=== PATIENT | male | born 1980 | race Hispanic/Latino ===

== ENCOUNTER 2020-03-24 19:05 | Emergency (ER) | payer OTHER ==
[~2020-03-24] VITALS: Ht 175.3 cm; Wt 86.2 kg
[2020-03-24] MEDS ORDERED: CEFEPIME 2 GM/NS 0.9% 100 ML 100 ML IV SCH (19:15)
[2020-03-24] MEDS ORDERED: SODIUM CHLORIDE 0.9% 1000ML 1,000 ML IV ONE (19:15)
[2020-03-24] MEDS ORDERED: ACETAMINOPHEN 325 MG TAB PO ONE (19:15)
--- NOTE | 2020-03-24 19:20 | Emergency Department Note ---
History of Present Illnes History of Present Illness Chief Complaint: COVID PUI History of Present Illness This is a 39 year old male presents with c/o fever and cough starting this morning, states cough is mildly productive, pt reports he smokes less than a pack of cigarettes per day . Historian: Patient Arrival Mode: Car Onset (how long ago): hour(s) (6) Location: chest Quality: cough, fever Radiation: Reports non-radiation Severity: mild Onset quality: sudden Duration (how long): hour(s) (6) Timing of current episode: constant Context: Denies recent illness Relieving factors: none Exacerbating factors: none Associated symptoms: Reports cough, Reports fever/chills Treatments prior to arrival: none Past Medical/Family History Physician Review I have reviewed the patient's past medical and family history. Any updates have been documented here. Past Medical History Recent Fever: Yes Clinical Suspicion of Infectio: Yes New/Unexplained Change in Ment: No Past Medical History: None Past Surgical History: None Social History Smoking Cessation: Current every day smoker (less than 1/2 pack per day) Alcohol Use: Occasional Any Illegal Drug Use: No Family History Family history of heart diseas: No Other Last Tetanus: UNKNOWN Review of Systems Review of Systems Constitutional: Reports as per HPI EENTM: Reports no symptoms Cardiovascular: Reports no symptoms Respiratory: Reports as per HPI Gastrointestinal: Reports no symptoms Genitourinary: Reports no symptoms Musculoskeletal: Reports no symptoms Integumentary: Reports no symptoms Neurological: Reports no symptoms Psychological: Reports no symptoms Endocrine: Reports no symptoms Hematological/Lymphatic: Reports no symptoms Physical Exam Related Data Allergies: Coded Allergies: No Known Allergies (Unverified , 03/24/20) Triage Vital Signs Vital Signs Date Time Temp Pulse Resp B/P (MAP) Pulse Ox O2 Delivery O2 Flow Rate FiO2 03/24/20 19:10 101.9 101 18 147/84 98 Vital signs reviewed: Yes Physical Exam CONSTITUTIONAL Constitutional: Reports well-developed, Reports well-nourished HENT HENT: Reports normocephalic, Reports atraumatic, Reports oropharynx clear/moist, Reports nose normal HENT L/R: Reports left ext ear normal, Reports right ext ear normal EYES Eyes: Reports PERRL, Reports conjunctivae normal NECK Neck: Reports ROM normal PULMONARY Pulmonary: Reports effort normal, Reports breath sounds normal CARDIOVASCULAR Cardiovascular: Reports regular rhythm, Reports heart sounds normal, Reports capillary refill normal, Reports normal rate GASTROINTESTINAL Abdominal: Reports soft, Reports nontender, Reports bowel sounds normal GENITOURINARY Genitourinary: Reports exam deferred SKIN Skin: Reports warm, Reports dry MUSCULOSKELETAL Musculoskeletal: Reports ROM normal NEUROLOGICAL Neurological: Reports alert, Reports oriented x 3, Reports no gross motor or sensory deficits PSYCHOLOGICAL Psychological: Reports mood/affect normal, Reports judgement normal Results Laboratory Laboratory Laboratory Tests Test 03/24/20 19:45 White Blood Count 7.50 x10e3/uL (4.8-10.8) Red Blood Count 4.74 x10e6/uL (4.3-5.7) Hemoglobin 14.2 g/dL (14.0-18.0) Hematocrit 42.2 % (38.2-49.6) Mean Corpuscular Volume 89.0 fL (81-99) Mean Corpuscular Hemoglobin 30.0 pg (28-32) Mean Corpuscular Hemoglobin Concent 33.6 g/dL (31-35) Red Cell Distribution Width 12.1 % (11.7-14.4) Platelet Count 234 x10e3/uL (140-360) Neutrophils (%) (Auto) 92.0 % (38.7-80.0) Lymphocytes (%) (Auto) 4.1 % (18.0-39.1) Monocytes (%) (Auto) 2.9 % (4.4-11.3) Eosinophils (%) (Auto) 0.3 % (0.0-6.0) Basophils (%) (Auto) 0.3 % (0.0-1.0) Neutrophils # (Auto) 6.9 (2.1-6.9) Lymphocytes # (Auto) 0.3 (1.0-3.2) Monocytes # (Auto) 0.2 (0.2-0.8) Eosinophils # (Auto) 0.0 (0.0-0.4) Basophils # (Auto) 0.0 (0.0-0.1) Absolute Immature Granulocyte (auto 0.03 x10e3/uL (0-0.1) Prothrombin Time 14.0 seconds (11.9-14.5) Prothromb Time International Ratio 1.02 Activated Partial Thromboplast Time 30.3 seconds (23.8-35.5) Sodium Level 135 mmol/L (136-145) Potassium Level 4.0 mmol/L (3.5-5.1) Chloride Level 102 mmol/L (98-107) Carbon Dioxide Level 21 mmol/L (22-29) Anion Gap 16.0 mmol/L (8-16) Blood Urea Nitrogen 12 mg/dL (7-26) Creatinine 1.07 mg/dL (0.72-1.25) Estimat Glomerular Filtration Rate > 60 ML/MIN (60-) BUN/Creatinine Ratio 11 (6-25) Glucose Level 115 mg/dL (74-118) Lactic Acid Level 0.8 mmol/L (0.5-2.0) Calcium Level 8.5 mg/dL (8.4-10.2) Total Bilirubin 0.5 mg/dL (0.2-1.2) Aspartate Amino Transf (AST/SGOT) 53 IU/L (5-34) Alanine Aminotransferase (ALT/SGPT) 92 IU/L (0-55) Alkaline Phosphatase 98 IU/L (40-150) Creatine Kinase 186 IU/L (30-200) Creatine Kinase MB 0.40 ng/mL (0-5.0) Troponin I 0.020 ng/mL (0-0.300) Total Protein 7.9 g/dL (6.5-8.1) Albumin 4.1 g/dL (3.5-5.0) Globulin 3.8 g/dL (2.3-3.5) Albumin/Globulin Ratio 1.1 (0.8-2.0) Influenza Virus Types A,B Antigen Negative (NEGATIVE) Group A Streptococcus Screen Negative (NEGATIVE) Lab results reviewed: Yes Imaging Imaging results reviewed: Yes Impressions EXAM: CHEST SINGLE (PORTABLE) DATE: 03/24/2020 7:55 PM INDICATION: ^Y ^feve, cough ^[id number] ^1953 ^Y COMPARISON: None FINDINGS: Lines and tubes: None Heart size normal. No focal pulmonary opacity, pleural effusion or pneumothorax. Upper abdomen unremarkable. No acute bony abnormality. IMPRESSION: No evidence for acute disease. Signed by: Dr. Bashir Navarro M.D. on 03/24/2020 8:26 PM Procedures 12 Lead ECG Interpretation ECG Interpretation : ECG: ECG 1 Weed Inspector: Interpreted by ED physician Date: Mar 24, 2020 Time: 19:29 Rhythm: sinus rhythm Rate: normal BPM: 95 QRS axis: normal ST segments normal: Yes T waves normal: Yes Other findings: no other findings Clinical Impression: normal ECG Assessment & Plan Medical Decision Making MDM pt with fever and cough, sirs criteria temp 101.9 and heart rate greater than 90 cbc, cmp, ekg, cxr, blood cultures, lactic acid, pt/.ptt, cardiac enyzmes, rapid flu, strep screen ,covid 19 ordered to eval for pneumonia, sepsis, influenza, s trep pharyngitis, covid 19 cefepime 2 grams iv ordered ns 1 liter iv ordered tylenol 975 mg po ordered PT WITH BRONCHITIS, DISCHARGED HOME ON SELF QUARANTINE UNTIL COVID 19 TEST COMES BACK Assessment & Plan Final Impression: (1) Fever (2) Bronchitis Depart Disposition: HOME, SELF-CARE Last Vital Signs Date Time Temp Pulse Resp B/P (MAP) Pulse Ox O2 Delivery O2 Flow Rate FiO2 03/24/20 19:10 101.9 101 18 147/84 98 Medications in the ED Cefepime HCl 100 ml @ 200 mls/hr Q12H IV ; Start 03/24/20 at 19:15; Stop 03/31/20 at 19:14; Status UNV Acetaminophen 975 mg ONCE ONCE PO ; Start 03/24/20 at 19:15; Stop 03/24/20 at 19:16; Status UNV Sodium Chloride 1,000 ml @ 999 mls/hr Q1H1M ONCE IV ; Start 03/24/20 at 19:15; Stop 03/24/20 at 20:15 ONEAL MADISON MD Mar 24, 2020 19:20
[2020-03-24 20:06] LABS: BASOPHILS % 0.3 % (0.0-1.0); EOSINOPHILS % 0.3 % (0.0-6.0); HEMATOCRIT 42.2 % (38.2-49.6); HEMOGLOBIN 14.2 g/dL (14.0-18.0); LYMPHOCYTES # (AUTO) 0.3 (1.0-3.2); LYMPHOCYTES % 4.1 % (18.0-39.1); MEAN CORPUSCULAR HGB CONC 33.6 g/dL (31-35); MONOCYTES # (AUTO) 0.2 (0.2-0.8); MONOCYTES % 2.9 % (4.4-11.3); NEUTROPHILS # (AUTO) 6.9 (2.1-6.9); PLATELET COUNT 234 x10e3/uL (140-360); RED BLOOD COUNT 4.74 x10e6/uL (4.3-5.7); RED CELL DISTRIBUTION WIDTH 12.1 % (11.7-14.4)
[2020-03-24 20:14] LABS: INR 1.02
[2020-03-24 20:15] LABS: PARTIAL THROMBOPLASTIN TIME 30.3 seconds (23.8-35.5)
[2020-03-24 20:21] LABS: STREPTOCOCCUS GRP A ANTIGEN NEGATIVE (NEGATIVE)
[2020-03-24 20:24] LABS: ALANINE AMINOTRANSFERASE 92 IU/L (0-55); ALBUMIN 4.1 g/dL (3.5-5.0); ALBUMIN/GLOBULIN RATIO 1.1 (0.8-2.0); ALKALINE PHOSPHATASE 98 IU/L (40-150); BLOOD UREA NITROGEN 12 mg/dL (7-26); BUN/CREATININE RATIO 11 (6-25); CALCIUM 8.5 mg/dL (8.4-10.2); CARBON DIOXIDE 21 mmol/L (22-29); CHLORIDE 102 mmol/L (98-107); CREATINE KINASE 186 IU/L (30-200); CREATININE, SERUM 1.07 mg/dL (0.72-1.25); EST GLOMERULAR FILTRATION RATE > 60 ML/MIN (60-); GLUCOSE 115 mg/dL (74-118); SODIUM 135 mmol/L (136-145)
--- NOTE | 2020-03-24 20:29 | Diagnostic Imaging Report ---
EXAM: CHEST SINGLE (PORTABLE) DATE: 03/24/2020 7:55 PM INDICATION: ^Y ^feve, cough ^[id number] ^1953 ^Y COMPARISON: None FINDINGS: Lines and tubes: None Heart size normal. No focal pulmonary opacity, pleural effusion or pneumothorax. Upper abdomen unremarkable. No acute bony abnormality. IMPRESSION: No evidence for acute disease. Signed by: Dr. Bashir Navarro M.D. on 03/24/2020 8:26 PM
[2020-03-24 20:35] LABS: INFLUENZAE A&B ANTIGEN (RAPID) NEGATIVE (NEGATIVE)
[2020-03-24 22:45] VITALS: BP 123/72
== END 2020-03-24 22:45 | disposition home or self-care (01) ==
LOC: ER 19:05
DX: R50.9 Fever, unspecified (principal); R05 Cough; J40 Bronchitis, not specified as acute or chronic; F17.210 Nicotine dependence, cigarettes, uncomplicated
CPT/HCPCS: 36415; 71045; 80053; 82550; 82553; 83518; 83605; 84484; 85025; 85610; 85730; 87070; 87400; 87635; 93005; 99284; J7030